=== PATIENT | male | born 1955 | race African-American/Black ===

== ENCOUNTER 2020-05-11 19:09 | Inpatient (IN) | payer MEDICARE ==
[2020-05-11 20:18] LABS: #Basophils 0.1 thou/uL (0.0-0.2); #Eosinphils 0.1 thou/uL (0.0-0.7); #Lymphocytes 2.2 thou/uL (1.20-3.40); #Monocytes 0.9 thou/uL (0.11-0.59); #Neutrophils 13.5 thou/uL (1.40-6.50); %Basophils 0.4 % (0.0-1.0); %Eosinophils 0.4 % (0.0-10.0); %Lymphocytes 13.1 % (21.0-51.0); %Monocytes 5.1 % (0.0-10.0); %Neutrophils 81.1 % (42.0-75.0); Hemoglobin 14.2 g/dL (12.0-18.0); Mean Corpuscular HGB CONC 31.3 g/dL (32.0-36.0); Mean Corpuscular Hemoglobin 28.5 pg (27.0-31.0); Mean Corpuscular Volume 91.1 fL (78.0-98.0); Mean Platelet Volume 10.5 fL (7.4-10.4); Platelet Count 149 thou/uL (130-400); RBC Distribution Width 14.9 % (11.5-14.5); Red Blood Cell (RBC) Count 4.96 mill/uL (4.20-6.10); White Blood Cell (WBC) Count 16.6 thou/uL (4.8-10.8)
[2020-05-11 20:53] LABS: ALT (SGPT) 7 U/L (8-55); AST (SGOT) 12 U/L (5-34); Albumin 2.2 g/dL (3.4-4.8); Alkaline Phosphatase 114 U/L (40-110); Anion Gap 16 mmol/L (10-20); BUN (Urea Nitrogen) 16 mg/dL (8.4-25.7); Bilirubin, Total 0.6 mg/dL (0.2-1.2); Calc. Creatinine Clearance 0 mL/min (70-130); Calcium 8.2 mg/dL (7.8-10.44); Carbon Dioxide 30 mmol/L (23-31); Chloride 95 mmol/L (98-107); Globulin 4.1 g/dL (2.4-3.5); Glucose 139 mg/dL (80-115); Potassium 3.8 mmol/L (3.5-5.1); Protein, Total 6.3 g/dL (5.8-8.1); Sodium 137 mmol/L (136-145)
[2020-05-11 21:04] LABS: CKMB 1.8 ng/mL (0-6.6)
[2020-05-11] MEDS ORDERED: Cefepime 2 GM VIAL ONE (21:30)
[2020-05-11] MEDS ORDERED: Vancomycin 1 GM/200 ML BAG ONE (21:30)
[2020-05-11] MEDS ORDERED: Acetaminophen 325 MG TAB PO PRN (23:54)
[2020-05-12] LABS: Troponin I 0.016 ng/mL (< 0.028)
[2020-05-12 01:41] LABS: Lactic Acid 3.5 mmol/L (0.5-2.2)
[2020-05-12] MEDS ORDERED: Pharmacy to Dose VANC AND CEFEPIME IVPB PRN (03:02)
[2020-05-12] MEDS ORDERED: Sodium Chloride 0.9% 500 ML IV SCH (03:15)
[2020-05-12] MEDS ORDERED: HumaLOG 300 UNITS/3 ML VIAL SC PRN (03:27)
[2020-05-12] MEDS ORDERED: Dextrose 5% in Water 1,000 ML IV PRN (03:27)
[2020-05-12] MEDS ORDERED: Dextrose 50% Abboject 50 ML SYRINGE SLOW IVP PRN (03:27)
[2020-05-12] MEDS ORDERED: Vancomycin HCl 500 MG in Sodium Chloride 0.9% 100 ML IVPB SCH (03:45)
[2020-05-12] MEDS ORDERED: Vancomycin HCl 250 MG in Sodium Chloride 0.9% 100 ML IVPB SCH (03:45)
[2020-05-12] MEDS ORDERED: Vancomycin HCl 750 MG in Sodium Chloride 0.9% 250 ML 250 ML IVPB SCH (03:45)
[2020-05-12] MEDS ORDERED: Vancomycin 1 GM in Premix Bag 1 BAG IVPB SCH (03:45)
[2020-05-12 04:45] LABS: #Basophils 0.1 thou/uL (0.0-0.2); #Eosinphils 0.2 thou/uL (0.0-0.7); #Lymphocytes 2.3 thou/uL (1.20-3.40); #Monocytes 0.8 thou/uL (0.11-0.59); #Neutrophils 10.6 thou/uL (1.40-6.50); %Basophils 0.7 % (0.0-1.0); %Eosinophils 1.3 % (0.0-10.0); %Lymphocytes 16.5 % (21.0-51.0); %Monocytes 5.8 % (0.0-10.0); %Neutrophils 75.7 % (42.0-75.0); Hemoglobin 11.6 g/dL (14.0-18.0); Mean Corpuscular HGB CONC 31.6 g/dL (32.0-36.0); Mean Corpuscular Hemoglobin 28.6 pg (27.0-31.0); Mean Corpuscular Volume 90.7 fL (78.0-98.0); Mean Platelet Volume 9.4 fL (7.4-10.4); Platelet Count 195 thou/uL (130-400); RBC Distribution Width 14.8 % (11.5-14.5); Red Blood Cell (RBC) Count 4.07 mill/uL (4.70-6.10)
[2020-05-12 05:14] LABS: Anion Gap 13 mmol/L (10-20); BUN (Urea Nitrogen) 18 mg/dL (8.4-25.7); Calc. Creatinine Clearance 8 mL/min (70-130); Calcium 7.1 mg/dL (7.8-10.44); Carbon Dioxide 26 mmol/L (23-31); Chloride 100 mmol/L (98-107); Glucose 95 mg/dL (80-115); Sodium 136 mmol/L (136-145)
[2020-05-12 05:18] LABS: Troponin I 0.064 ng/mL (< 0.028)
[2020-05-12 05:19] LABS: Potassium 2.9 mmol/L (3.5-5.1)
[2020-05-12] MEDS ORDERED: Potassium Chloride 20 MEQ TAB PO SCH (05:45)
[2020-05-12] MEDS ORDERED: Potassium Bicarbonate/Cit Ac 20 MEQ TAB PO SCH ×2 (06:30→11:00)
[2020-05-12] MEDS ORDERED: Magnesium 2 GM/50 ML 2 GM in Premix Bag 1 BAG IVPB SCH (07:45)
[2020-05-12 09:32] LABS: SARS-CoV-2 PCR by NAA Not Detected (NotDetected)
[2020-05-12] MEDS: Pantoprazole 40 MG VIAL IVP SCH (20:43)
[2020-05-13 04:40] LABS: #Basophils 0.1 thou/uL (0.0-0.2); #Eosinphils 0.2 thou/uL (0.0-0.7); #Lymphocytes 2.1 thou/uL (1.20-3.40); #Monocytes 0.7 thou/uL (0.11-0.59); #Neutrophils 7.5 thou/uL (1.40-6.50); %Basophils 0.5 % (0.0-1.0); %Eosinophils 2.1 % (0.0-10.0); %Lymphocytes 19.8 % (21.0-51.0); %Monocytes 6.5 % (0.0-10.0); %Neutrophils 71.1 % (42.0-75.0); Hemoglobin 11.8 g/dL (14.0-18.0); Mean Corpuscular HGB CONC 31.7 g/dL (32.0-36.0); Mean Corpuscular Hemoglobin 28.6 pg (27.0-31.0); Mean Corpuscular Volume 90.2 fL (78.0-98.0); Platelet Count 172 thou/uL (130-400); RBC Distribution Width 14.6 % (11.5-14.5); Red Blood Cell (RBC) Count 4.15 mill/uL (4.70-6.10); White Blood Cell (WBC) Count 10.5 thou/uL (4.8-10.8)
[2020-05-13 04:55] LABS: Anion Gap 12 mmol/L (10-20); BUN (Urea Nitrogen) 18 mg/dL (8.4-25.7); Calc. Creatinine Clearance 9 mL/min (70-130); Carbon Dioxide 26 mmol/L (23-31); Chloride 98 mmol/L (98-107); Potassium 3.1 mmol/L (3.5-5.1); Sodium 133 mmol/L (136-145)
[2020-05-13 04:56] LABS: Albumin 1.7 g/dL (3.4-4.8); BUN/Creatinine Ratio 2.24; Calcium 7.1 mg/dL (7.8-10.44); Glucose 137 mg/dL (80-115); Phosphorus 3.9 mg/dL (2.3-4.7)
[2020-05-13 08:02] LABS: Glucose 119 mg/dL (80-115)
[2020-05-13 08:30] LABS: Vancomycin, Random 17.4 ug/mL (See Comment)
[2020-05-13 08:45] VITALS: BMI 19.6
[2020-05-13] MEDS ORDERED: Potassium Chloride 20 MEQ TAB PO SCH (10:15)
[2020-05-13] MEDS: Pantoprazole 40 MG VIAL IVP SCH ×2 (10:45→20:52)
[2020-05-13] MEDS ORDERED: Potassium Bicarbonate/Cit Ac 20 MEQ TAB PO SCH (10:45)
[2020-05-13] MEDS ORDERED: Vancomycin HCl 250 MG in Sodium Chloride 0.9% 100 ML IVPB SCH (12:00)
[2020-05-13 12:49] LABS: Glucose 103 mg/dL (80-115)
[2020-05-13] MEDS ORDERED: PROPOFOL 200 MG/20 ML VIAL ONE (13:13)
[2020-05-13] MEDS ORDERED: Lidocaine 1% PF 5 ML VIAL ONE (13:13)
[2020-05-13] MEDS ORDERED: Promethazine HCl 25 MG/ML VIAL SLOW IVP PRN (13:38)
[2020-05-13] MEDS ORDERED: Promethazine HCl 25 MG/ML VIAL IM PRN (13:38)
[2020-05-13] MEDS ORDERED: Loperamide HCl 2 MG CAP PO PRN (16:02)
[2020-05-13 18:05] LABS: Glucose 63 mg/dL (80-115)
[2020-05-13] MEDS ORDERED: Cefepime 2 GM in Sodium Chloride 0.9% 100 ML IVPB SCH (21:00)
[2020-05-14 04:37] LABS: #Basophils 0.1 thou/uL (0.0-0.2); #Eosinphils 0.2 thou/uL (0.0-0.7); #Monocytes 0.7 thou/uL (0.11-0.59); #Neutrophils 5.9 thou/uL (1.40-6.50); %Lymphocytes 22.8 % (21.0-51.0); %Monocytes 7.7 % (0.0-10.0); %Neutrophils 66.5 % (42.0-75.0); Mean Corpuscular HGB CONC 31.7 g/dL (32.0-36.0); Mean Corpuscular Hemoglobin 28.4 pg (27.0-31.0); Mean Corpuscular Volume 89.6 fL (78.0-98.0); Mean Platelet Volume 9.9 fL (7.4-10.4); Platelet Count 155 thou/uL (130-400); RBC Distribution Width 14.6 % (11.5-14.5); Red Blood Cell (RBC) Count 4.22 mill/uL (4.70-6.10); White Blood Cell (WBC) Count 8.8 thou/uL (4.8-10.8)
[2020-05-14 04:57] LABS: Albumin 1.6 g/dL (3.4-4.8); Anion Gap 13 mmol/L (10-20); BUN (Urea Nitrogen) 18 mg/dL (8.4-25.7); BUN/Creatinine Ratio 2.36; Calc. Creatinine Clearance 9 mL/min (70-130); Carbon Dioxide 23 mmol/L (23-31); Chloride 97 mmol/L (98-107); Glucose 108 mg/dL (80-115); Phosphorus 3.4 mg/dL (2.3-4.7); Sodium 130 mmol/L (136-145)
[2020-05-14 04:59] LABS: Potassium 2.9 mmol/L (3.5-5.1)
[2020-05-14] MEDS ORDERED: Potassium Bicarbonate/Cit Ac 20 MEQ TAB PO SCH ×2 (06:45→13:00)
[2020-05-14] MEDS: Pantoprazole 40 MG VIAL IVP SCH ×2 (08:22→20:45)
[2020-05-14 09:05] LABS: Glucose 110 mg/dL (80-115)
[2020-05-14 12:26] LABS: Glucose 91 mg/dL (80-115)
[2020-05-14 12:59] LABS: Bacteria/HPF None Seen HPF (None Seen); Bilirubin Negative (Negative); Blood, Urine 1+ (Negative); Clarity Clear (Clear); Glucose, Urine (Dipstick) Normal (Negative); Ketone, Urine Trace mg/dL (Negative); Leukocyte 25 Leu/uL (Negative); Nitrite Negative (Negative); Protein, Urine (Dipstick) 300 mg/dL (Neg-Trace); Urobilinogen Normal mg/dL (Less than 2)
[2020-05-14 13:00] LABS: Urine Culture Reflex No No
[2020-05-14] MEDS ORDERED: Potassium Chloride 20 MEQ TAB PO SCH (13:00)
[2020-05-14 17:42] LABS: Glucose 78 mg/dL (80-115)
[2020-05-14] MEDS ORDERED: Magnesium Sulfate 4 GM in Sodium Chloride 0.9% 250 ML 250 ML IVPB SCH (21:30)
[2020-05-15 05:10] LABS: Albumin 1.7 g/dL (3.4-4.8); Anion Gap 14 mmol/L (10-20); BUN (Urea Nitrogen) 16 mg/dL (8.4-25.7); BUN/Creatinine Ratio 2.12; Calc. Creatinine Clearance 9 mL/min (70-130); Calcium 7.4 mg/dL (7.8-10.44); Carbon Dioxide 24 mmol/L (23-31); Chloride 99 mmol/L (98-107); Glucose 111 mg/dL (80-115); Magnesium 2.5 mg/dL (1.6-2.6); Phosphorus 3.2 mg/dL (2.3-4.7); Potassium 3.6 mmol/L (3.5-5.1); Sodium 133 mmol/L (136-145)
[2020-05-15 07:41] VITALS: TEMP 97.6
[2020-05-15] MEDS ORDERED: Potassium Chloride 20 MEQ TAB PO SCH (08:00)
[2020-05-15] MEDS ORDERED: Potassium Bicarbonate/Cit Ac 20 MEQ TAB PO SCH (08:00)
[2020-05-15 08:22] LABS: Vancomycin, Random 16.2 ug/mL (See Comment)
[2020-05-15] MEDS: Pantoprazole 40 MG VIAL IVP SCH (08:26)
[2020-05-15 12:13] VITALS: BP 154/89
[2020-05-16 12:10] LABS: Routine O & P Final report (.)
== END 2020-05-15 12:34 | disposition home or self-care (01) | DRG 871 ==
LOC: EDSEX 19:09 → ERS 19:09 → 2NO 22:22 → OBSVTOIN 05-12 07:37
PROVIDERS: ADMIT Internal Medicine; ATTEND Internal Medicine
PROC: 0DB38ZX Excision of Lower Esophagus, Via Natural or Artificial Opening Endoscopic, Diagnostic (ICD-10-PCS; principal; 2020-05-13)
PROC: 0DB68ZX Excision of Stomach, Via Natural or Artificial Opening Endoscopic, Diagnostic (ICD-10-PCS; 2020-05-13)
PROC: 3E1M39Z Irrigation of Peritoneal Cavity using Dialysate, Percutaneous Approach (ICD-10-PCS; 2020-05-14)
DX: A41.9 Sepsis, unspecified organism (principal); N18.6 End stage renal disease; G93.41 Metabolic encephalopathy; I12.0 Hypertensive chronic kidney disease with stage 5 chronic kidney disease or end stage renal disease; N39.0 Urinary tract infection, site not specified; I24.8 Other forms of acute ischemic heart disease; E87.1 Hypo-osmolality and hyponatremia; E46 Unspecified protein-calorie malnutrition; I25.10 Atherosclerotic heart disease of native coronary artery without angina pectoris; E78.5 Hyperlipidemia, unspecified; I73.9 Peripheral vascular disease, unspecified; L97.529 Non-pressure chronic ulcer of other part of left foot with unspecified severity; F17.210 Nicotine dependence, cigarettes, uncomplicated; K21.00 Gastro-esophageal reflux disease with esophagitis, without bleeding; E86.9 Volume depletion, unspecified; K29.80 Duodenitis without bleeding; E83.42 Hypomagnesemia; K22.8 Other specified diseases of esophagus; Z20.822 Contact with and (suspected) exposure to COVID-19; E11.22 Type 2 diabetes mellitus with diabetic chronic kidney disease; E87.6 Hypokalemia; Z99.2 Dependence on renal dialysis; Z88.8 Allergy status to other drugs, medicaments and biological substances; Z95.1 Presence of aortocoronary bypass graft; Z89.511 Acquired absence of right leg below knee; Z68.20 Body mass index [BMI] 20.0-20.9, adult
CPT/HCPCS: 36415; 36416; 71045; 71275; 80048; 80053; 80069; 80202; 81001; 82553; 83605; 83735; 84484; 85025; 87040; 87045; 87046; 87177; 87324; 87427; 87449; 87635; 88305; 90945; 93005; 95712; 95819; 95957; 96365; 96367; C9113; G0257; G0378; J0692; J2704; J3370; J3475; J3490; J7050; U0003; U0005